=== PATIENT | male | born 1995 | race American Indian/Alaskan Native ===

== ENCOUNTER 2020-05-30 10:01 | Emergency (ER) | payer SELFPAY ==
[2020-05-30 10:13] VITALS: BP 132/88
--- NOTE | 2020-05-30 10:42 | Emergency Department Report ---
Abscess Boil HPI - HPI Chief Complaint: Skin/Abscess/Foreign Body Stated Complaint: SWOLLEN LIP X 2DAYS Time Seen by Provider: 05/30/20 10:37 Duration: 3 Days Location: Other (Right upper lip) History: Yes Pain, Yes Purulent Drainage, No Numbness, No Foreign Body, No Previous History, No Insect Bite HPI: 24-year-old -[place] male presents to the emergency room for day #3 of a blister to the right upper lip. Patient states it started off as a blackhead he burst it came out with the hair and white cheesy discharge and then the next day it had swollen nothing become more painful. Patient denies any fever chills no nausea no vomiting. Patient reports he is up-to-date on his vaccines. He denies any known drug allergies. Denies any past medical history. Home Medications: Previous Rx's Medication Instructions Recorded Last Taken Type Sulfamethoxazole/Trimethoprim 1 each PO BID 10 Days #20 tablet 05/30/20 Unknown Rx [Bactrim DS TAB] Allergies/Adverse Reactions: Allergies Allergy/AdvReac Type Severity Reaction Status Date / Time No Known Allergies Allergy Unverified 05/30/20 10:09 ED Review of Systems ROS: Stated complaint: SWOLLEN LIP X 2DAYS Other details as noted in HPI Comment: All other systems reviewed and negative ED Past Medical Hx - Past Medical History Previous Medical History?: No - Surgical History Past Surgical History?: No - Social History Smoking Status: Current Every Day Smoker Substance Use Type: None - Medications Home Medications: Home Medications Medication Instructions Recorded Confirmed Last Taken Type Sulfamethoxazole/Trimethoprim 1 each PO BID 10 Days #20 tablet 05/30/20 Unknown Rx [Bactrim DS TAB] ED Abscess Boil Physical Exam - Exam General: Vital signs noted. No distress. Alert and acting appropriately. Size: 3 cm (Right upper vermilion line with swelling of the whole lip on the right side) Exam: Yes Tenderness, Yes Fluctuance, Yes Surrounding Cellulites/Erythema, Yes Heart Murmur, Yes Normal Neurologic Exam, Yes Normal Circulation ED Course Vital Signs 05/30/20 10:12 Temperature 98.1 F Pulse Rate 91 H Respiratory 16 Rate Blood Pressure 132/88 O2 Sat by Pulse 99 Oximetry Critical care attestation.: If time is entered above; I have spent that time in minutes in the direct care of this critically ill patient, excluding procedure time. ED Medical Decision Making - Medical Decision Making 24-year-old -[place] male presents to the emergency room for day #3 of a blister to the right upper lip. Patient states it started off as a blackhead he burst it came out with the hair and white cheesy discharge and then the next day it had swollen nothing become more painful. Patient denies any fever chills no nausea no vomiting. Patient reports he is up-to-date on his vaccines. He denies any known drug allergies. Denies any past medical history. Discussed with patient does have an abscess that will need to be treated with antibiotics. Patient will be placed on Bactrim double strength 1 tablet twice a day for 10 days. Patient can take Tylenol or ibuprofen as needed for pain management. Discussed with patient to be sure to wash his hand before touching and after touching his lip. ED Disposition Clinical Impression: Lip abscess Disposition: [id number] TO HOME OR SELFCARE Is pt being admited?: No Does the pt Need Aspirin: No Condition: Stable Instructions: Skin Abscess, [id number] Additional Instructions: Bactrim double strength 1 tablet twice a day for 10 days. Patient can take Tylenol or ibuprofen as needed for pain management. Discussed with patient to be sure to wash his hand before touching and after touching his lip. Prescriptions: Sulfamethoxazole/Trimethoprim [Bactrim DS TAB] 1 each PO BID 10 Days #20 tablet Referrals: [facility] [Provider Group] - 3-5 Days Forms: Work/School Release Form(ED)
== END 2020-05-30 11:24 | disposition home or self-care (01) ==
LOC: ED 10:01
DX: K13.0 Diseases of lips (principal); F17.200 Nicotine dependence, unspecified, uncomplicated; Z79.899 Other long term (current) drug therapy
CPT/HCPCS: 99282